=== PATIENT | female | born 1990 ===

== ENCOUNTER 2017-10-30 21:59 | Outpatient (CLI) | payer OTHER ==
[2017-10-31] MEDS ORDERED: PRENATAL 19 TA1 EACH PO (07:31)
== END 2017-10-31 09:48 | disposition home or self-care (01) ==
LOC: OBS/DEL 21:59
DX: O60.02 Preterm labor without delivery, second trimester (principal); O23.42 Unspecified infection of urinary tract in pregnancy, second trimester; Z34.82 Encounter for supervision of other normal pregnancy, second trimester